=== PATIENT | female | born 1960 | race Caucasian/White ===

== ENCOUNTER → 2016-06-17 | Outpatient (CLI) | payer OTHER ==
[2016-06-17 20:17] LABS: BASO % 0.5 % (0.0-1.0); EOS # 0.2 K/mm3 (0.0-0.50); EOS % 2.4 % (0.0-3.0); LARGE UNSTAINED CELL # 0.2 K/mm3 (0.0-0.4); LARGE UNSTAINED CELL % 1.8 % (0.0-4.0); LYMPH # 2.1 K/mm3 (1.5-4.5); LYMPH % 25.2 % (24.0-44.0); MEAN CORPUSCULAR HEMOGLOBIN 30.8 pg (27.0-33.0); MEAN CORPUSCULAR HGB CONC 32.7 g/dl (32.0-36.5); MEAN CORPUSCULAR VOLUME 94.3 fl (80.0-96.0); MONO # 0.4 K/mm3 (0.0-0.8); MONO % 4.5 % (0.0-5.0); NEUTROPHILS # 5.5 K/mm3 (1.8-7.7); NEUTROPHILS % 65.5 % (36.0-66.0); PLATELET COUNT, AUTOMATED 216 k/mm3 (150-450); RED CELL DISTRIBUTION WIDTH 12.6 % (11.5-14.5); WHITE BLOOD COUNT 8.4 K/mm3 (4.0-10.0)
[2016-06-17 21:15] LABS: ALBUMIN 3.8 GM/DL (3.2-5.2); ALBUMIN/GLOBULIN RATIO 0.97 (1.00-1.93); ALKALINE PHOSPHATASE 85 U/L (45-117); ALT/SGPT 41 U/L (12-78); ANION GAP 8 MEQ/L (8-16); AST/SGOT 14 U/L (15-37); BILIRUBIN,TOTAL 0.2 MG/DL (0.2-1.0); BLOOD UREA NITROGEN 15 MG/DL (7-18); CALCIUM LEVEL 9.3 MG/DL (8.5-10.1); CARBON DIOXIDE LEVEL 30 MEQ/L (21-32); CHLORIDE LEVEL 106 MEQ/L (98-107); CHOLESTEROL LEVEL 137 MG/DL (<200); CREATININE FOR GFR 0.81 MG/DL (0.55-1.02); GLOMERULAR FILTRATION RATE > 60.0 (>51); GLUCOSE, FASTING 78 MG/DL (70-105); POTASSIUM SERUM 3.9 MEQ/L (3.5-5.1); SODIUM LEVEL 144 MEQ/L (136-145); TOTAL PROTEIN 7.7 GM/DL (6.4-8.2); TRIGLYCERIDES LEVEL 106 MG/DL (<150)
--- NOTE | 2016-06-18 02:59 | REP ---
Clinical: Trauma. Technique: AP, lateral, bilateral oblique and sunrise views of the right and left knee. Findings: The osseous structures and joint spaces are intact and normal for age. Mild cortical irregularity to the femoral condyles and increase sclerosis to the tibial plateau noted. There is no evidence for acute fracture or dislocation. No joint effusion is appreciated. Surrounding soft tissues are unremarkable. No subcutaneous emphysema or radiodense foreign body. Impression: Mild age-related changes suggested. No acute fracture or dislocation. Signed by Romel Dennis MD 06/18/2016 02:51 A
== END ==
LOC: M WUC 12:24
PROVIDERS: ATTEND Emergency Medicine
DX: I10 Essential (primary) hypertension (principal); R73.01 Impaired fasting glucose; M17.0 Bilateral primary osteoarthritis of knee

== ENCOUNTER → 2016-07-09 | Outpatient (REF) | payer OTHER | LOC: M LAB REF 13:33 | PROVIDERS: ATTEND Physician Assistant Medical | DX: Z01.419 Encounter for gynecological examination (general) (routine) without abnormal findings (principal); Z11.51 Encounter for screening for human papillomavirus (HPV) ==

== ENCOUNTER → 2016-08-06 | Outpatient (CLI) | payer OTHER ==
[2016-08-06 18:44] LABS: FREE T4 1.07 NG/DL (0.76-1.46)
== END ==
LOC: M WUC 14:34
PROVIDERS: ATTEND Emergency Medicine
DX: E03.9 Hypothyroidism, unspecified (principal)

== ENCOUNTER → 2016-08-11 | Outpatient (CLI) | payer OTHER ==
--- NOTE | 2016-08-11 18:25 | REP ---
Clinical: Bilateral trauma with pain focused at the bilateral patella. Technique: AP, lateral, bilateral oblique and sunrise views of the right and left knee. Findings: Symmetric bilateral age-related changes are appreciated. There is no evidence for acute fracture or dislocation. No joint effusion is appreciated. Surrounding soft tissues are unremarkable. No subcutaneous emphysema or radiodense foreign body. Impression: Symmetric age-related degenerative changes. No acute fracture or dislocation. Signed by Romel Dennis MD 08/11/2016 06:16 P
== END ==
LOC: M WUC 17:43
PROVIDERS: ATTEND Emergency Medicine
DX: S80.01XA Contusion of right knee, initial encounter (principal); S80.02XA Contusion of left knee, initial encounter; X58.XXXA Exposure to other specified factors, initial encounter; Y93.9 Activity, unspecified; Y92.9 Unspecified place or not applicable; Y99.8 Other external cause status

== ENCOUNTER → 2016-10-22 | Outpatient (CLI) | payer OTHER ==
--- NOTE | 2016-10-22 12:46 | REP ---
TRIPLE PHASE BONE SCAN OF THE KNEES: Following the intravenous administration of 21.9 mCi of technetium-99m MDP, patient's knees are images in the flow phase on the anterior and posterior projections showing symmetrical blood flow bilaterally. Immediate blood pool and 2 hour delayed images are performed of the knees in the anterior, posterior, and both lateral projections. There is no abnormal blood pooling. Delayed images show mild increased uptake in the knee joints bilaterally compatible with degenerative joint disease. I do not see compelling scintigraphic evidence of an occult fracture. Well defined bone lesion was seen on prior MRI of 10/03/2016. At that location in the left lateral tibial plateau there is mildly increased uptake. IMPRESSION: Arthritic uptake bilaterally. Mild increased uptake at the site of a bone lesion in the left lateral tibial plateau. I would favor that this represents a benign rather than a malignant bone lesion, but followup is recommended. Signed by Andrei Hawk MD 10/23/2016 07:04 P
== END ==
LOC: M RAD 07:47
PROVIDERS: ATTEND Physician Assistant Surgical
DX: M17.0 Bilateral primary osteoarthritis of knee (principal)

== ENCOUNTER → 2016-10-30 | Outpatient (CLI) | payer OTHER ==
[2016-10-30 20:23] LABS: FREE T4 1.13 NG/DL (0.76-1.46)
== END ==
LOC: M WUC 17:25
PROVIDERS: ATTEND Emergency Medicine
DX: E03.9 Hypothyroidism, unspecified (principal)

== ENCOUNTER → 2017-01-16 | Outpatient (REF) | payer OTHER ==
[~2017-01-16] MED LIST: LEVO100T5 PO; MULTCAP11 PO; PROBCAP4 PO; TRIA37.53 PO
== END ==
LOC: M LAB REF 12:31
PROVIDERS: ATTEND Obstetrics & Gynecology
DX: N39.3 Stress incontinence (female) (male) (principal)

== ENCOUNTER 2017-03-17 05:59 | Day surgery (SDC) | payer OTHER ==
[~2017-03-17] VITALS: Ht 170.2 cm; Wt 150.5 kg
[2017-03-17] MEDS ORDERED: LR 1,000 ML IV SCH ×2 (06:15→09:30)
[2017-03-17] MEDS ORDERED: VASOPRESSIN INJ 20 UNITS/ML VIAL As Ordered ONE (07:13)
[2017-03-17] MEDS ORDERED: PROPOFOL 200 MG/20 ML VIAL As Ordered ONE ×2 (07:19→08:19)
[2017-03-17] MEDS ORDERED: fentaNYL 100 MCG/2 ML INJECTION (J3010) As Ordered ONE ×2 (07:19→08:52)
[2017-03-17] MEDS ORDERED: LIDOCAINE 2% INJ 100 MG/5 ML SDV (FOR ANES.) As Ordered ONE (07:19)
[2017-03-17] MEDS ORDERED: MIDAZOLAM INJ 2 MG/2 ML VIAL (J2250) As Ordered ONE (07:20)
[2017-03-17] MEDS ORDERED: CHLOROPROCAINE PRES. FREE 3% INJ 20 ML VIAL (J2400) As Ordered ONE (08:19)
[2017-03-17] MEDS ORDERED: PERCOCET 5MG/325MG TAB As Ordered ONE (08:52)
--- NOTE | 2017-03-17 09:26 | RO ---
DATE OF PROCEDURE: 03/17/2017 PREPROCEDURE DIAGNOSES: Stress urinary incontinence with urethral hypermobility. POSTPROCEDURE DIAGNOSES: Stress urinary incontinence with urethral hypermobility. PROCEDURE: Mini mid urethral sling using Solyx and cystourethroscopy. SURGEON: Jessica Salmon MD DIRECTOR OF PRODUCT DEVELOPMENT: ANESTHESIA: Spinal. BRIEF DESCRIPTION OF PROCEDURE AND FINDINGS: Kalee was brought to the operating room where sufficient spinal anesthesia was induced and she was prepped, draped and positioned in the usual sterile fashion. We did not put the weight in, the patient has a fairly narrow introitus so I used the [place] tilted a little to the side and drained the bladder and then the anterior aspect of the vagina was grasped, approximately 1 cm cephalad from the urethral meatus. A 1.5 cm incision was made in the anterior vaginal wall after diluted vasopressin had been injected. The tracts for the mini mid urethral sling were carefully dissected out. The landmarks carefully palpated and noted. Then the Solyx mini mid urethral sling was placed in the usual fashion, starting first at the patient's right side and then her left. There was some superficial oozing from the right side and I could readily put my finger over the medial aspect of the pubic ramus and stop this. It was not particularly heavy, just venous oozing. There was no such oozing on the left side. After placement, cystourethroscopy was undertaken and absence of bladder or urethral injury was confirmed and then the vaginal wound was closed. I then carefully palpated and confirmed that there had not been any other vaginal injury or difficulty, and that there was no evidence of a forming hematoma. We did take a few extra moments at the end of the case because with the patient's body habitus it was a little bit more difficult to see and close that wound than is typical, but we were readily able to visualize the anterior vaginal wall with a little bit of Trendelenburg used and to confirm that there did not appear to be any continued problem with bleeding or any mesh injury. With the wound closed and the mesh appropriately placed, the procedure was ended. Estimated blood loss for the procedure was maybe 10 mL. Fluid replacement was Crystalloid. Complications: None. Condition and disposition: Kalee tolerated the procedure well and was recovering in the recovery room in good condition.
[2017-03-17] MEDS ORDERED: PERCOCET 5MG/325MG TAB PO PRN (09:30)
[2017-03-17] MEDS ORDERED: fentaNYL 100 MCG/2 ML INJECTION (J3010) IV PRN (09:30)
[2017-03-17] MEDS ORDERED: IBUPROFEN 600 MG TAB PO PRN (09:30)
[2017-03-17] MEDS ORDERED: ONDANSETRON 4MG/2ML VIAL (J2405) IV PRN (09:30)
[2017-03-17] MEDS ORDERED: NORCO, ANEXSIA 5/325MG TABLET (HYDROcodone/ACETAMINOPHEN) PO PRN (09:30)
[2017-03-17 10:40] VITALS: BP 135/71
== END 2017-03-17 10:44 | disposition home or self-care (01) ==
LOC: M SDC 05:59
PROVIDERS: ATTEND Obstetrics & Gynecology
DX: N39.3 Stress incontinence (female) (male) (principal); N36.41 Hypermobility of urethra; I10 Essential (primary) hypertension; E03.9 Hypothyroidism, unspecified; E66.9 Obesity, unspecified; M12.9 Arthropathy, unspecified; R06.02 Shortness of breath; R29.898 Other symptoms and signs involving the musculoskeletal system; D48.0 Neoplasm of uncertain behavior of bone and articular cartilage; R06.83 Snoring; Z88.2 Allergy status to sulfonamides; Z79.899 Other long term (current) drug therapy; Z98.51 Tubal ligation status
CPT/HCPCS: 57288; C1771; J0690; J2250; J2400; J2405; J3010

== ENCOUNTER 2017-04-23 10:36 | Day surgery (SDC) | payer OTHER ==
[~2017-04-23] VITALS: Ht 170.2 cm; Wt 150.1 kg
[2017-04-23] MEDS ORDERED: LR 1,000 ML IV ONE (10:45)
[2017-04-23] MEDS ORDERED: fentaNYL 100 MCG/2 ML INJECTION (J3010) As Ordered ONE (12:41)
[2017-04-23] MEDS ORDERED: MIDAZOLAM INJ 2 MG/2 ML VIAL (J2250) As Ordered ONE (12:41)
[2017-04-23] MEDS ORDERED: PROPOFOL 200 MG/20 ML VIAL As Ordered ONE (12:41)
[2017-04-23] MEDS ORDERED: ONDANSETRON 4MG/2ML VIAL (J2405) As Ordered ONE (12:41)
[2017-04-23] MEDS ORDERED: LIDOCAINE 2% INJ 100 MG/5 ML SDV (FOR ANES.) As Ordered ONE (12:41)
[2017-04-23] MEDS ORDERED: METOCLOPRAMIDE INJ 10MG/2ML VIAL (J2765) As Ordered ONE (12:41)
[2017-04-23] MEDS ORDERED: LR 1,000 ML IV SCH ×2 (14:00→14:15)
[2017-04-23] MEDS ORDERED: NORCO, ANEXSIA 5/325MG TABLET (HYDROcodone/ACETAMINOPHEN) As Ordered ONE ×2 (14:05→16:12)
[2017-04-23] MEDS: NORCO, ANEXSIA 5/325MG TABLET (HYDROcodone/ACETAMINOPHEN) PO PRN ×2 (14:09→16:10)
[2017-04-23] MEDS ORDERED: fentaNYL 100 MCG/2 ML INJECTION (J3010) IV PRN (14:15)
[2017-04-23] MEDS ORDERED: IBUPROFEN 600 MG TAB PO PRN (14:15)
[2017-04-23 16:30] VITALS: BP 147/70
--- NOTE | 2017-04-23 20:27 | RO ---
DATE OF PROCEDURE: 04/23/2017 PREPROCEDURE DIAGNOSIS: Failed midurethral sling, readily palpable close to the skin POSTPROCEDURE DIAGNOSIS: Failed midurethral sling, readily palpable close to the skin. OPERATIVE PROCEDURE: Removal of Solyx midurethral sling with right side anchor left and cystourethroscopy. The anchor on the right side where it felt that it had not set and you could feel the sling through the skin. It did come out with the sling consistent with how it felt on exam. The anchor on the left side did not come with the sling. The sling gave, but the rest of the sling was removed. SURGEON: Jessica Salmon MD VP CLIENT SERVICES: ANESTHESIA: Spinal. . DESCRIPTION OF PROCEDURE: Kalee was brought to the operating room where sufficient spinal anesthesia was induced. She was prepped, draped and positioned in the usual sterile fashion. We used the cystoscope to empty the bladder so as you see on the cysto pictures they are a little bit yellow. Some of that fluid is actually urine. She did not have a catheter to empty the bladder, but we grasped the anterior vaginal wall with Allis clamps, you could see some granulation tissue where the incision had healed from her midurethral sling placement and a knife was used to incise this. We carefully dissected below the surface. We could palpate the sling and then carefully dissected it free of the tissues. Got a Nolvia on it and then used two Kellys on the sling to place careful traction and guide it midline and posterior so that we could free it. The sling on the right side came free with the anchor intact. We then placed traction posterior and midline to work free the left side and the anchor gave way on that side and te sling came out without it. Kalee had been warmed preoperatively that this might happen. We did not have a plan to open the tissues just to get that so we removed the sling with the right side anchor. We then placed a gauze as a packing and did cystourethroscopy to confirm that we had not injured the bladder, normal ureteral orifices, normal urethra. We then sewed the wound shut with good hemostasis and approximation resulting and the procedure was then ended. Estimated blood loss for the procedure is 30 ml or less. Fluid replaced was crystalloid. COMPLICATIONS: None. CONDITION AND DISPOSITION: Kalee tolerated the procedure well and was recovering in the recovery room in good condition.
== END 2017-04-23 16:40 | disposition home or self-care (01) ==
LOC: M SDC 10:36
PROVIDERS: ATTEND Obstetrics & Gynecology
DX: T83.198A Other mechanical complication of other urinary devices and implants, initial encounter (principal); E03.9 Hypothyroidism, unspecified; Z88.2 Allergy status to sulfonamides; Z79.899 Other long term (current) drug therapy; Y82.9 Unspecified medical devices associated with adverse incidents
CPT/HCPCS: 57287; 88300; J0690; J2250; J2405; J2765; J3010

== ENCOUNTER → 2017-07-20 | Outpatient (REF) | payer OTHER | LOC: M LAB REF 09:13 | DX: L82.1 Other seborrheic keratosis (principal) ==

== ENCOUNTER → 2019-03-08 | Outpatient (REF) | payer BC | LOC: M LAB REF 12:49 | PROVIDERS: ATTEND Physician Assistant | DX: Z01.411 Encounter for gynecological examination (general) (routine) with abnormal findings (principal); N95.0 Postmenopausal bleeding | CPT/HCPCS: 87624; G0123 ==

== ENCOUNTER → 2019-04-16 | Outpatient (CLI) | payer BC ==
[2019-04-16 13:05] LABS: BASO % 0.5 % (0.0-1.0); EOS # 0.3 10^3/uL (0.0-0.5); HEMATOCRIT 45.6 % (36.0-47.0); HEMOGLOBIN 14.2 g/dl (12.0-15.5); LYMPH # 1.7 10^3/uL (1.5-5.0); LYMPH % 20.7 % (24.0-44.0); MEAN CORPUSCULAR HEMOGLOBIN 30.1 pg (27.0-33.0); MEAN CORPUSCULAR HGB CONC 31.1 g/dl (32.0-36.5); MEAN CORPUSCULAR VOLUME 96.6 fl (80.0-96.0); MONO # 0.7 10^3/uL (0.0-0.8); MONO % 8.6 % (0.0-5.0); NEUTROPHILS # 5.6 10^3/uL (1.5-8.5); NEUTROPHILS % 66.8 % (36.0-66.0); PLATELET COUNT, AUTOMATED 217 10^3/uL (150-450); RED BLOOD COUNT 4.72 10^6/uL (4.00-5.40); WHITE BLOOD COUNT 8.3 10^3/uL (4.0-10.0)
[2019-04-16 13:17] LABS: ALBUMIN 4.1 GM/DL (3.2-5.2); ALT/SGPT 36 U/L (12-78); BILIRUBIN,TOTAL 0.6 MG/DL (0.2-1.0); BLOOD UREA NITROGEN 16 MG/DL (7-18); CALCIUM LEVEL 9.4 MG/DL (8.5-10.1); CARBON DIOXIDE LEVEL 27 MEQ/L (21-32); CHLORIDE LEVEL 109 MEQ/L (98-107); CHOLESTEROL LEVEL 172 MG/DL (<200); CHOLESTEROL RISK RATIO 3.185 (<5); CREATININE FOR GFR 0.98 MG/DL (0.55-1.30); FREE T4 1.04 NG/DL (0.76-1.46); GLOMERULAR FILTRATION RATE > 60.0 (>51); GLUCOSE, FASTING 94 MG/DL (70-100); HDL CHOLESTEROL 54 MG/DL (>40); LDL CHOLESTEROL 102 MG/DL (<100); NON-HDL-C 118 MG/DL; POTASSIUM SERUM 4.3 MEQ/L (3.5-5.1); SODIUM LEVEL 141 MEQ/L (136-145); TOTAL PROTEIN 7.7 GM/DL (6.4-8.2); TRIGLYCERIDES LEVEL 79 MG/DL (<150)
== END ==
LOC: M WUC 10:15
PROVIDERS: ATTEND Physician Assistant
DX: E03.9 Hypothyroidism, unspecified (principal); N95.0 Postmenopausal bleeding; I10 Essential (primary) hypertension

== ENCOUNTER → 2019-07-09 | Outpatient (CLI) | payer BC ==
[2019-07-09 14:44] LABS: FREE T4 0.92 NG/DL (0.76-1.46); THYROID STIMULATING HORMONE 9.04 uIU/ML (0.358-3.740)
== END ==
LOC: M WUC 10:01
PROVIDERS: ATTEND Physician Assistant
DX: E03.9 Hypothyroidism, unspecified (principal)

== ENCOUNTER → 2020-03-23 | Outpatient (CLI) | payer BC ==
[2020-03-23 17:48] LABS: ALBUMIN 3.8 GM/DL (3.2-5.2); ALT/SGPT 24 U/L (12-78); BILIRUBIN,TOTAL 0.2 MG/DL (0.2-1.0); BLOOD UREA NITROGEN 16 MG/DL (7-18); CARBON DIOXIDE LEVEL 31 MEQ/L (21-32); CHLORIDE LEVEL 105 MEQ/L (98-107); CHOLESTEROL LEVEL 195 MG/DL (<200); CHOLESTEROL RISK RATIO 3.482 (<5); CREATININE FOR GFR 0.86 MG/DL (0.55-1.30); GLOMERULAR FILTRATION RATE > 60.0 (>51); GLUCOSE, FASTING 81 MG/DL (70-100); HDL CHOLESTEROL 56 MG/DL (>40); LDL CHOLESTEROL 120 MG/DL (<100); NON-HDL-C 139 MG/DL; POTASSIUM SERUM 4.5 MEQ/L (3.5-5.1); SODIUM LEVEL 139 MEQ/L (136-145); TOTAL PROTEIN 7.3 GM/DL (6.4-8.2); TRIGLYCERIDES LEVEL 97 MG/DL (<150)
[2020-03-23 18:17] LABS: HEMOGLOBIN A1c 5.7 %
== END ==
LOC: M WUC 15:25
PROVIDERS: ATTEND Nurse Practitioner Family
DX: E03.9 Hypothyroidism, unspecified (principal); I10 Essential (primary) hypertension; R73.01 Impaired fasting glucose

== ENCOUNTER → 2020-05-24 | Outpatient (CLI) | payer BC ==
[2020-05-24 16:31] LABS: FREE T4 1.15 NG/DL (0.76-1.46); THYROID STIMULATING HORMONE 2.6 uIU/ML (0.358-3.740)
== END ==
LOC: M WUC 13:50
PROVIDERS: ATTEND Nurse Practitioner Family
DX: E03.9 Hypothyroidism, unspecified (principal)

== ENCOUNTER → 2020-09-05 | Outpatient (CLI) | payer BC ==
--- NOTE | 2020-09-06 07:18 | REP ---
INDICATION: PAIN COMPARISON: None. TECHNIQUE: AP and lateral views of the left ankle. FINDINGS: The osseous structures are intact and essentially age-appropriate. No obvious acute or subacute/healed injuries identified. Lateral view demonstrates a small to moderate calcaneal heel spur. Surrounding soft tissues are otherwise grossly unremarkable. IMPRESSION: As above. Relatively age-related changes. <Electronically signed by Romel Dennis > 09/06/20 0715
--- NOTE | 2020-09-06 07:20 | REP ---
INDICATION: PAIN COMPARISON: None. TECHNIQUE: AP, lateral, bilateral oblique views left foot. FINDINGS: Small corticated fragment along the lateral aspect at the base of the 5th metatarsal bone suggests old injury. The examination is otherwise relatively age-appropriate. No acute or subacute/healed injuries other identified oblique view demonstrates osteophyte along the superior aspect of the talus suggesting large talar beak which may be somewhat lateral as is not identified on the true lateral radiograph. Small to moderate calcaneal heel spur is also identified. IMPRESSION: Degenerative changes as noted above. If the patient remains symptomatic consider CT or MRI for further investigation. <Electronically signed by Romel Dennis > 09/06/20 [id number]
== END ==
LOC: M WUC 15:24
PROVIDERS: ATTEND Physician Assistant Medical
DX: M25.571 Pain in right ankle and joints of right foot (principal); M77.31 Calcaneal spur, right foot

== ENCOUNTER → 2020-09-14 | Outpatient (CLI) | payer BC ==
--- NOTE | 2020-09-14 13:44 | REP ---
INDICATION: SPRAIN COMPARISON: None. TECHNIQUE: AP, lateral, bilateral oblique and sunrise views. FINDINGS: Osseous structures are intact and without acute fracture or dislocation. There is evidence for soft tissue swelling and suprapatellar effusion consistent with soft tissue injury. IMPRESSION: 1. No acute fracture or dislocation. 2. Findings suggesting soft tissue injury. <Electronically signed by Romel Dennis > 09/14/20 1729
== END ==
LOC: M WUC 13:19
PROVIDERS: ATTEND Physician Assistant
DX: S83.412A Sprain of medial collateral ligament of left knee, initial encounter (principal); X58.XXXA Exposure to other specified factors, initial encounter; Y92.9 Unspecified place or not applicable

== ENCOUNTER → 2022-04-23 | Outpatient (CLI) | payer BC, OTHER ==
[~2022-04-23] MED LIST changes: -TRIA37.53 PO; +TRIA37.577 PO
== END ==
LOC: M WHC 06:38
PROVIDERS: ATTEND Nurse Practitioner Family
DX: Z12.31 Encounter for screening mammogram for malignant neoplasm of breast (principal)

== ENCOUNTER → 2022-08-22 | Outpatient (CLI) | payer OTHER ==
[2022-08-22 11:38] LABS: HEMATOCRIT 43.1 % (36.0-47.0); HEMOGLOBIN 13.7 g/dl (12.0-15.5); MEAN CORPUSCULAR HEMOGLOBIN 30.6 pg (27.0-33.0); MEAN CORPUSCULAR HGB CONC 31.8 g/dl (32.0-36.5); MEAN CORPUSCULAR VOLUME 96.4 fl (80.0-96.0); PLATELET COUNT, AUTOMATED 222 10^3/uL (150-450); RED BLOOD COUNT 4.47 10^6/uL (4.00-5.40); WHITE BLOOD COUNT 7.6 10^3/uL (4.0-10.0)
[2022-08-22 11:42] LABS: BLOOD UREA NITROGEN 19 MG/DL (9-23); CALCIUM LEVEL 9.5 MG/DL (8.3-10.6); CARBON DIOXIDE LEVEL 31 MMOL/L (20-31); CHLORIDE LEVEL 103 MMOL/L (98-107); CREATININE FOR GFR 0.78 MG/DL (0.55-1.30); GLOMERULAR FILTRATION RATE > 60.0 (>45); GLUCOSE, FASTING 75 MG/DL (74-106); POTASSIUM SERUM 4.7 MMOL/L (3.5-5.1); SODIUM LEVEL 139 MMOL/L (136-145)
[2022-08-22 11:46] LABS: FERRITIN 73.4 NG/ML (7.3-270.7); FOLATE 19.09 NG/ML (>5.4)
[2022-08-22 11:47] LABS: TOTAL 25(OH) VITAMIN D 40.6 NG/ML (20.0-100.0); VITAMIN B12 LEVEL 580 PG/ML (211-911)
== END ==
LOC: M WUC 08:06
PROVIDERS: ATTEND Physician Assistant
DX: Z98.84 Bariatric surgery status (principal); K91.2 Postsurgical malabsorption, not elsewhere classified; K21.9 Gastro-esophageal reflux disease without esophagitis

== ENCOUNTER → 2022-08-22 | Outpatient (CLI) | payer OTHER ==
[2022-08-22 11:46] LABS: ALBUMIN 3.6 G/DL (3.2-5.2); ALKALINE PHOSPHATASE 113 U/L (46-116); ALT/SGPT 31 U/L (7.0-40); AST/SGOT 19 U/L (<34); BILIRUBIN,TOTAL 0.7 MG/DL (0.3-1.2); BLOOD UREA NITROGEN 19 MG/DL (9-23); CALCIUM LEVEL 9.5 MG/DL (8.3-10.6); CARBON DIOXIDE LEVEL 30 MMOL/L (20-31); CHLORIDE LEVEL 105 MMOL/L (98-107); CHOLESTEROL LEVEL 151 MG/DL (<200); CHOLESTEROL RISK RATIO 3.05 (<5); CREATININE FOR GFR 0.76 MG/DL (0.55-1.30); FREE T4 1.34 NG/DL (0.89-1.76); GLOMERULAR FILTRATION RATE > 60.0 (>45); GLUCOSE, FASTING 75 MG/DL (74-106); HDL CHOLESTEROL 49.5 MG/DL (>40); LDL CHOLESTEROL 88.9 MG/DL (<100); NON-HDL-C 101.5 MG/DL; POTASSIUM SERUM 4.3 MMOL/L (3.5-5.1); SODIUM LEVEL 140 MMOL/L (136-145); THYROID STIMULATING HORMONE 1.379 uIU/ML (0.55-4.78); TOTAL PROTEIN 6.6 G/DL (5.7-8.2); TRIGLYCERIDES LEVEL 63 MG/DL (<150)
== END ==
LOC: M WUC 08:08
PROVIDERS: ATTEND Nurse Practitioner Family
DX: E03.9 Hypothyroidism, unspecified (principal)

== ENCOUNTER 2023-01-07 09:51 | Day surgery (SDC) | payer OTHER ==
[~2023-01-07] VITALS: Ht 167.6 cm; Wt 104.4 kg
[~2023-01-07 09:51] MED LIST changes: +BIOT1000 PO; +CYAN-1 PO; +LEVO137T2 PO; +NS 1,000 ML IV ONE; +THERTAB52 PO
[2023-01-07] MEDS ORDERED: propofoL 200 MG/20 ML VIAL As Ordered ONE ×2 (11:02→11:25)
[2023-01-07 11:17] VITALS: TEMP 98.1
[2023-01-07 11:41] VITALS: BP 136/72; O2SAT 100
== END 2023-01-07 12:00 | disposition home or self-care (01) ==
LOC: M OPP 09:51
PROVIDERS: ATTEND Surgery
DX: Z12.11 Encounter for screening for malignant neoplasm of colon (principal); K64.1 Second degree hemorrhoids; Z98.84 Bariatric surgery status; Z87.891 Personal history of nicotine dependence; Z79.890 Hormone replacement therapy; Z79.899 Other long term (current) drug therapy; Z88.2 Allergy status to sulfonamides; Z91.030 Bee allergy status

== ENCOUNTER → 2023-01-20 | Outpatient (CLI) | payer OTHER ==
[~2023-01-20] MED LIST changes: -NS 1,000 ML IV ONE
== END ==
LOC: M PLAIMG 11:01
PROVIDERS: ATTEND Nurse Practitioner Family
DX: R91.8 Other nonspecific abnormal finding of lung field (principal); R05.9 Cough, unspecified

== ENCOUNTER → 2024-10-06 | Outpatient (REF) | payer OTHER ==
[~2024-10-06] MED LIST changes: -BIOT1000 PO; +BIOT10002 PO
[2024-10-06 13:47] LABS: IRON (FE) 76 UG/DL (50-170); PERCENT SATURATION 23.4 % (13.2-45.0); PHOSPHORUS LEVEL 3.5 MG/DL (2.4-5.1); TOTAL IRON BINDING CAPACITY 325 UG/DL (250-425)
[2024-10-06 13:48] LABS: FERRITIN 21.4 NG/ML (7.3-270.7)
[2024-10-06 13:49] LABS: TOTAL 25(OH) VITAMIN D 33.8 NG/ML (20.0-100.0)
[2024-10-06 13:50] LABS: FOLATE > 24.0 NG/ML (>5.4); VITAMIN B12 LEVEL 1109 PG/ML (211-911)
== END ==
LOC: M LAB REF 11:56
PROVIDERS: ATTEND Physician Assistant Medical
DX: Z98.84 Bariatric surgery status (principal)